=== PATIENT | male | born 1940 | race Caucasian/White ===

== ENCOUNTER → 2017-02-24 | Outpatient (CLI) | payer MEDICARE ==
[~2017-02-24] MED LIST: ASPIRIN 81MG TA81 MG PO; LEVOTHYROXIN0.125 M1 NG
--- NOTE | 2017-02-25 10:14 | RADIOLOGY REPORT PS360 ---
CHEST(2 VIEWS-NOT PORTABLE) HISTORY: HEMOPTYSIS 1 week. Patient Age: 77 years: Male Ordering Physician: Samuel Onofre MD TECHNIQUE: PA and lateral chest COMPARISON : FINDINGS There is a 3 cm x 2.5 cm height lesion which is developed at the left lung The located just lateral to the left ventura left frontal projection but more likely involves the posterior lung likely at the superior segment of the left lower lobe. Also recommend a follow-up CT chest preferably with contrast to further evaluate.. The may want to check sputum for AFB as well given if this is indeed in the superior segment of the right lower lobe. Multiple old right rib fractures are noted with blunting right CP angle on reflecting chronic pleural changes. Mild dextro scoliosis T-spine noted. Calcified hilar nodes on left again noted. Stable feature. IMPRESSION: New pulmonary lesion left lung. Measure up to 3 cm transverse x 2 cm height with irregular stellate margins. Suspect for neoplasm on plain film -Likely involving the superior segment of the left lower lobe . Recommend CT with preferably with contrast to further evaluate.
== END ==
LOC: RAD 09:33
DX: R04.2 Hemoptysis (principal)

== ENCOUNTER 2017-05-09 14:12 | Emergency (ER) | payer MEDICARE ==
[~2017-05-09] VITALS: Ht 172.7 cm; Wt 55.8 kg
--- OUTSIDE RECORDS SUMMARY | 2017-05-09 14:17 | External Medical Summary Rpt | CCD ---
Author Author , WESLY KLINE Address Unknown Phone [email or web address] Purpose Continuity of Care Document - through 2016 Problems Code Diagnosis DOS Provider Status K56.69 OTHER INTESTINAL OBSTRUCTION
--- OUTSIDE RECORDS SUMMARY | 2017-05-09 14:17 | External Medical Summary Rpt ---
Author Author RAISA Parra, RAISA Parra Organization [employer] Address Unknown Phone Unavailable
--- OUTSIDE RECORDS SUMMARY | 2017-05-09 14:17 | External Medical Summary Rpt | CCD ---
Author Author [employer] Organization [employer] Address Unknown Phone Unavailable Purpose Continuity of Care Document - through 2016
--- OUTSIDE RECORDS SUMMARY | 2017-05-09 14:17 | External Medical Summary Rpt | CCD ---
Author Author , WESLY KLINE Address Unknown Phone [email or web address] Immunization Name Date Rout CVX Reac Dose Comm Prov Is Faci e tion ent ider Refu lity Give sed n PPV2 10-2 33 999 Hist D203 No D203 3 7-20 oric 45 45 16 al Info rmat ion - Sour ce Unsp ecif ied Infl 09-2 135 999 Hist D203 No D203 uenz 9-20 oric 45 45 a, 16 al High Info rmat Dose ion - Sour ce Unsp ecif ied
--- OUTSIDE RECORDS SUMMARY | 2017-05-09 14:17 | External Medical Summary Rpt | CCD ---
Author Author , WESLY KLINE Address Unknown Phone [email or web address] Purpose Continuity of Care Document - through 2016 Problems Code Diagnosis DOS Provider Status K56.69 OTHER INTESTINAL OBSTRUCTION
--- OUTSIDE RECORDS SUMMARY | 2017-05-09 14:17 | External Medical Summary Rpt | CCD ---
Author Author , WESLY KLINE Address Unknown Phone [email or web address] Immunization Name Date Rout CVX Reac Dose [...]
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
[2017-05-09] MEDS ORDERED: METOPROLOL SUCC50 M1 PO (15:50)
[2017-05-09] MEDS ORDERED: LISINOPRIL 10MG10 MG PO (15:50)
[2017-05-09] MEDS ORDERED: LOVASTATIN40 MG PO (15:51)
[2017-05-09] MEDS ORDERED: AMLODIPINE10 M2 PO (15:51)
[2017-05-09 16:05] LABS: LYMPH # 6.3 K/mm3 (0.7-4.5); LYMPH % 45.6 % (10-50)
[2017-05-09 16:11] LABS: HEMOGLOBIN 13.5 g/dL (14.1-18.0)
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
--- NOTE | 2017-05-09 17:00 | RADIOLOGY REPORT PS360 ---
CT ABD PELVIS W/O CONTRAST CLINICAL INDICATION: Left upper quadrant pain with nausea and vomiting ABD PAIN WITH HX BOWEL OBSTRUCTION A YEAR AGO ORDERING PHYSICIAN: Ana Cullen MD PATIENT AGE: 77 years COMPARISON: None TECHNIQUE: Axial images obtained with sagittal and coronal reformats. PROCEDURE: Oral Contrast: None IV Contrast: None . FINDINGS: Patchy atelectasis or fibrosis noted in the lung bases. There are coronary artery calcifications. The liver, spleen, and adrenal glands are unremarkable. There are calcifications present in the pancreatic head and body consistent with chronic pancreatitis. There is marked thickening of the palmar lower this of the stomach with also thickening of the duodenal bulb. There is a small fluid collection in the region of the pylorus containing a small amount of gas anteriorly and could represent an ulcer or ulcerated mass. Upper endoscopy may be of further value.. No obstructing renal or ureteral calculi. Suspect bilateral renal cyst. There are fluid-filled loops of small bowel with scattered air-fluid levels. Postsurgical changes are present in the small bowel in the right lower quadrant with suture lines noted. No obvious transition point is evident. There is extensive diverticulosis of the sigmoid colon with a mild amount retained colonic feces within the colon. No free air is evident. There is thickening of the urinary bladder suggesting chronic cystitis. There are postsurgical changes of the intra-abdominal wall IMPRESSION: 1. Extensive thickening of the pylorus of the stomach suspicious for mass versus underlying inflammatory change with a small cavity present in the proximal pyloric region which could be due to an ulcer or ulcerated mass. Upper endoscopy may be of further value. 2. Mildly distended small bowel loops with a few air-fluid levels with mild thickening of the small bowel suggesting enteritis/ileus. A partial obstruction is not totally excluded. 3. Chronic pancreatitis 4. Mildly thickened urinary bladder which may be seen with cystitis.
[2017-05-09] MEDS ORDERED: BENTYL10 M1 PO (18:58)
[2017-05-09] MEDS ORDERED: Zofran4 MG PO (18:58)
[2017-05-09] MEDS ORDERED: FLAGYL500 M1 PO (18:58)
[2017-05-09] MEDS ORDERED: ZANTAC 150150 MG PO (18:58)
[2017-05-09] MEDS ORDERED: IMODIUM A-D2 M3 PO (18:58)
[2017-05-09 19:11] VITALS: BP 146/87
== END 2017-05-09 19:12 | disposition home or self-care (01) ==
LOC: UTC 14:12 → ER 14:15
PROVIDERS: Emergency Medicine
DX: R10.12 Left upper quadrant pain (principal); N30.90 Cystitis, unspecified without hematuria; K52.9 Noninfective gastroenteritis and colitis, unspecified; K27.9 Peptic ulcer, site unspecified, unspecified as acute or chronic, without hemorrhage or perforation; R11.10 Vomiting, unspecified; I10 Essential (primary) hypertension; E78.5 Hyperlipidemia, unspecified; Z87.891 Personal history of nicotine dependence; Z79.899 Other long term (current) drug therapy
CPT/HCPCS: J2405

== ENCOUNTER 2017-05-25 07:57 | Day surgery (SDC) | payer MEDICARE ==
[~2017-05-25] VITALS: Ht 172.7 cm; Wt 55.8 kg
[~2017-05-25 07:57] MED LIST changes: +AMLODIPINE10 M2 PO; +BENTYL10 M1 PO; +FLAGYL500 M1 PO; +IMODIUM A-D2 M3 PO; +LISINOPRIL 10MG10 MG PO; +LOVASTATIN40 MG PO; +METOPROLOL SUCC50 M1 PO; +ZANTAC 150150 MG PO; +Zofran4 MG PO
--- NOTE | 2017-05-25 09:14 | Operative Note ---
Surgeon/Diagnoses Surgeon/Platen Press Operator Apprentice(s) Date of procedure: 05/25/17 Surgeon: MD Triny Fontenot Diagnoses Pre-op diagnosis: gastric lesion Post-op diagnosis Antral/pyloric ulcer Sliding hiatal hernia Procedure Procedure Procedure: Esophagogastroduodenoscopy biopsy and epinephrine injection Indications: JOSE C LAY is a 77 year-old Male with a history of antral/pyloric lesion per CT scan. Findings: Large crater ulceration at antral/pyloric margin Sliding hiatal hernia Procedure Description: After informed consent was obtained, the patient was taken to the endoscopy suite. Monitored anesthesia care ensued after he was transferred to the LEFT lateral decubitus position. The gastroscope was advanced. The stomach was entered. Retroflexion revealed a sliding hiatal hernia. A large crater ulceration with exudate at the base was noted at the antrum/pyloric junction. No active bleeding or sign of recent hemorrhage is noted. No visible vessel at the base was seen. Multiple biopsies were obtained of the margin. 4 quadrants were injected with epinephrine (10 mL). The pylorus was intubated. The duodenal mucosa appeared relatively normal. The gastroscope was carefully removed and the patient was transferred to recovery. EBL (ml): 1 Anesthesia: Monitored anesthesia care Complications: No immediate Specimens: Antral/pyloric margin ulceration Disposition Disposition: Stable to recovery from where he will be discharged home. He will follow up in one week. Clear liquids for 24 hours and full liquids for at least 5 days afterwards. Continue PPI/Carafate. at 0913
[2017-05-25 13:57] VITALS: BP 144/80
== END 2017-05-25 10:00 | disposition home or self-care (01) ==
LOC: SDC 07:57
PROVIDERS: Surgery
PROC: 0DB78ZX Excision of Stomach, Pylorus, Via Natural or Artificial Opening Endoscopic, Diagnostic (ICD-10-PCS; principal; 2017-05-25 08:30)
DX: K25.9 Gastric ulcer, unspecified as acute or chronic, without hemorrhage or perforation (principal); K44.9 Diaphragmatic hernia without obstruction or gangrene
CPT/HCPCS: J2405